=== PATIENT | female | born 1960 | race Caucasian/White ===

== ENCOUNTER 2018-12-12 13:53 | Emergency (ER) | payer OTHER ==
[2018-12-12 14:28] VITALS: BP 146/75
--- NOTE | 2018-12-12 15:04 | UC ---
Respiratory Complaint HPI - HPI Summary HPI Summary: 2 DAYS OF MILD COUGH, SINUS CONGESTION/PRESSURE, HEADACHE, ACHINESS AND SUBJECTIVE FEVER/CHILLS. STATES SHE HAS A HISTORY OF SINUSITIS AND THAT THE ONLY MEDICATION THAT EVER WORKS FOR HER IS CEFTIN. SHE IS REQUESTING THAT TODAY. STATES SHE HAS NOT HAD ANTIBIOTIC TREATMENT FOR SINUSITIS 2014. - History of Current Complaint Chief Complaint: UCGeneralIllness Stated Complaint: SINUS CONGESTION Time Seen by Provider: 12/12/18 14:40 Hx Obtained From: Patient Hx Last Menstrual Period: 03/2015 Onset/Duration: Gradual Onset, Lasting Days, Still Present Timing: Constant Severity Initially: Moderate Severity Currently: Moderate Pain Intensity: 9 Pain Scale Used: 0-10 Numeric Character: Cough: Nonproductive Aggravating Factors: Nothing Alleviating Factors: Nothing Associated Signs And Symptoms: Positive: Fever - SUBJECTIVE, URI, Nasal Congestion, Sinus Discomfort. Negative: Dyspnea, Wheezing - Allergies/Home Medications Allergies/Adverse Reactions: Allergies Allergy/AdvReac Type Severity Reaction Status Date / Time No Known Allergies Allergy Verified 12/12/18 14:22 Home Medications: Home Medications Phenylephrine HCl/Acetaminophn [Sinus Pressure-Pain Caplet] 1 each PO ONCE PRN 12/12/18 [History Confirmed 12/12/18] PMH/Surg Hx/FS Hx/Imm Hx Previously Healthy: Yes - Surgical History Surgical History: Yes Surgery Procedure, Year, and Place: C SECTION, CARPAL TUNNEL REPAIR - Family History Known Family History: Positive: Hypertension - Social History Alcohol Use: None Substance Use Type: None Smoking Status (MU): Never Smoked Tobacco - Immunization History Most Recent Tetanus Shot: WITHIN 10 YEARS Review of Systems All Other Systems Reviewed And Are Negative: Yes Constitutional: Positive: Chills, Fatigue ENT: Positive: Sinus Pain/Tenderness Respiratory: Positive: Cough Cardiovascular: Positive: Negative Gastrointestinal: Positive: Negative Neurological: Positive: Negative Physical Exam Triage Information Reviewed: Yes Appearance: Well-Appearing, No Pain Distress, Well-Nourished Vital Signs: Initial Vital Signs Temp 98.5 F 12/12/18 14:22 Pulse 88 12/12/18 14:22 Resp 17 12/12/18 14:22 BP 146/75 12/12/18 14:22 Pulse Ox 98 12/12/18 14:22 Vital Signs Reviewed: Yes Eyes: Positive: Conjunctiva Clear ENT: Positive: Hearing grossly normal, Pharynx normal, TMs normal - LEFT EAC PARTIALLY OCCLUDED WITH CERUMEN, Sinus tenderness Neck: Positive: Supple, Nontender, No Lymphadenopathy Respiratory Exam: Normal Cardiovascular Exam: Normal Abdomen Description: Positive: Soft Musculoskeletal: Positive: No Edema Neurological: Positive: Alert Psychological: Positive: Age Appropriate Behavior Skin: Negative: Rashes Respiratory Course/Dx - Course Course Of Treatment: DISCUSSED WITH PATIENT THAT MOST CASES OF ACUTE SINUSITIS ARE TYPICALLY VIRAL AND THAT SHE DOES NOT MEET ALL THE CRITERIA FOR AN ACUTE BACTERIAL SINUSITIS. SHE STATES SHE HAS HAD SIMILAR SYMPTOMS IN THE PAST THAT HAVE EVENTUALLY REQUIRED ANTIBIOTIC TREATMENT AND THAT CEFTIN IS THE ONLY MEDICATION WHICH IS EFFECTIVE. PATIENT STATES SHE HAS BEEN WELL OVER THE PAST FEW YEARS AND HAS NOT TAKEN ANY ANTIBIOTICS SINCE 2014. PER PATIENT REQUEST WILL GO AHEAD AND COVER WITH CEFTIN. I STRONGLY ADVISED HER TO FOLLOW-UP WITH AN ENT IF HER SYMPTOMS BECOME RECURRENT AGAIN. - Differential Dx/Diagnosis Provider Diagnosis: Sinusitis Discharge - Sign-Out/Discharge Documenting (check all that apply): Patient Departure All imaging exams completed and their final reports reviewed: No Studies - Discharge Plan Condition: Stable Disposition: HOME Prescriptions: ceFUROXime TAB(*) [Ceftin TAB 250 MG(*)] 250 mg PO BID #20 tab Patient Education Materials: Sinusitis (ED) Referrals: Deana Hopkins MD [Primary Care Provider] - If Needed Additional Instructions: YOUR SYMPTOMS ARE LIKELY VIRALLY MEDIATED AND SHOULD RESOLVE ON THEIR OWN WITH TIME. NO INDICATION FOR ANTIBIOTICS AT PRESENT HOWEVER GIVEN YOUR PERSONAL HISTORY WILL GO AHEAD AND COVER YOU WITH CEFTIN PER YOUR REQUEST. REST, HYDRATE , OTC MEDS NEEDED. SEEK FOLLOW-UP IF YOU ARE NOT IMPROVING OVER THE NEXT 1- 2 WEEKS. IF YOUR SINUS SYMPTOMS BECOME RECURRENT CONSIDER FOLLOWING UP WITH AN ENT FOR FURTHER EVALUATION AND TO DISCUSS TREATMENT OPTIONS. - Billing Disposition and Condition Condition: STABLE Disposition: Home
== END 2018-12-12 15:03 | disposition home or self-care (01) ==
LOC: UCCORT 13:53
DX: J32.9 Chronic sinusitis, unspecified (principal)
CPT/HCPCS: 99212; G0463